=== PATIENT | male | born 1975 | race Caucasian/White ===

== ENCOUNTER 2021-03-04 23:18 | Emergency (ER) | payer OTHER ==
[~2021-03-04] VITALS: Ht 177.8 cm; Wt 104.3 kg
[2021-03-05] MEDS ORDERED: INDOMETHACIN50 MG PO (01:00)
== END 2021-03-05 01:10 | disposition home or self-care (01) ==
LOC: ED 23:18
DX: M10.9 Gout, unspecified (principal); S50.02XA Contusion of left elbow, initial encounter; I10 Essential (primary) hypertension; W19.XXXA Unspecified fall, initial encounter
CPT/HCPCS: 73080; 99283-25